=== PATIENT | male | born 1955 | race Native Hawaiian/Other Pacific Islander ===

== ENCOUNTER 2016-08-05 12:32 | Inpatient (IN) | payer OTHER ==
[~2016-08-05] VITALS: Ht 182.9 cm; Wt 98.0 kg
[2016-08-05 14:15] VITALS: PULSE 61
[2016-08-05] MEDS ORDERED: Alum-Mag Hydrox-Simeth 30 mL Suspension PO PRN (14:35)
[2016-08-05] MEDS ORDERED: Ondansetron 2 mg/mL 2 mL Inj IVPUSH PRN (14:35)
[2016-08-05] MEDS ORDERED: Nitroglycerin 2% 1 Gm Ointment TOPICAL PRN (14:35)
[2016-08-05] MEDS ORDERED: Polyethylene Glycol (PEG) 17 Gm Powder PO PRN (14:35)
[2016-08-05] MEDS ORDERED: Senna-Docusate 8.6-50 mg Tablet PO PRN (14:35)
[2016-08-05] MEDS ORDERED: Heparin 25K Unit/500mL 0.45 NS 25,000 UNIT in IV Premix 1 EACH IV SCH (14:50)
[2016-08-05 15:17] VITALS: BP 173/99; PULSE 59; RESP 14; O2SAT 97
[2016-08-05 15:46] LABS: Magnesium 1.9 mg/dL (1.6-2.6)
[2016-08-05] MEDS: Sodium Chloride LOK Flush 10 mL Syringe IVFLUSH SCH (16:30)
[2016-08-05 16:43] VITALS: BP 151/83; PULSE 56; RESP 18; O2SAT 96
--- NOTE | 2016-08-05 16:49 | PCM.CHPCAR ---
Consult Subjective Date of service Aug 05, 2016 Date of admit 07/05/2016 Provider Requesting Consult Requesting Provider: Polly Mcconnell DO Primary Care Physician Primary Care Provider: Paddy Chief Complaint NSTEMI History of Present Illness Mr. Baca is a pleasant 61-year-old male that is clinically followed by Dr. Lora on an annual basis for coronary artery disease. Pt presented to [facility] secondary to a chest pain that reportedly felt like heart burn. His pain did not radiate, patient reports no other associated signs and symptoms, denies diaphoresis, denies chest pain at time of interview. Initial EKG at [facility] showed possible ST abnormalities, repeat EKG showed no ST elevation. Patient was not given nitroglycerin while at [facility] and his symptoms had resolved. Patient states that overnight in hospital his pain had subsided and was scheduled for a stress test at [facility] today however he drank coffee which made the test unavailable. He was transferred to [facility] for further evaluation. The patient has multiple cardiac risk factors and known moderate single coronary artery disease (50% mid LAD/2008) involving left anterior descending coronary artery. He is a 1 PPD smoker x 40 years and had diagnosed DM, HLD and HTN. Stress test done in 08/2015 did not show any excessive induced ischemia though did show some ST segment changes during the resting period. Review of Systems Review of Systems REVIEW OF SYSTEMS Constitutional: Denies Chills, Fever, Sweats, Weakness Eyes: Denies Blurred Vision, Pain, Redness, Vision Changes Neck: Denies Mass, Pain, Swelling Cardiovascular: Denies Chest Pain, Edema, Irregular Heart Rate, Palpitations, Rapid Heart Rate, SOB on Exertion, SOB while laying flat Respiratory: Denies Cough, Cough with bloody sputum, SOB with Exertion, Shortness of Breath, Sputum, Wake up Gasping for Breath, Wheezing Gastrointestinal: Denies Abdominal Pain, Black tarry stools, Bright red blood in stool, Change in Appetite, Constipation, Diarrhea, Heartburn, Nausea, Vomiting Genitourinary: Denies No burning or pain with urination Musculoskeletal: Denies Ankle Pain, Back Pain, Knee Pain, Neck Pain, Shoulder Pain Neurological: Denies Change in LOC, Change in Speech, Confusion, Difficulty Walking, Dizziness, Double Vision, Drooping Mouth, Incoordination, Localized Weakness, Seizures, Somnolence, Tremors, Vertigo. Endorses some numbness and tingling in bilateral lower extremities which he attributes to chronic diabetes and peripheral neuropathy. Hematologic: Denies Abnormal Bleeding, Bruising Lymphatic: Denies Adenopathy Problem List: # NSTEMI # Aortic regurgitation secondary to a bicuspid aortic valve # Hypertension # Hyperlipidemia # Tobacco dependance PMH Past Medical History # CAD # TIA # Diabetes type II # Hypertension # Hyperlipidemia # Aortic regurgitation secondary to bicuspid aortic valve # Tobacco use Past Surgical History # Reports left axillary cyst removal # Bilateral upper extremities by lipoma removal Scheduled Aspirin (Aspirin) 81 Mg Tablet 81 MG PO DAILY (Reported) Losartan Potassium (Losartan Potassium) 25 Mg Tablet 25 MG PO DAILY (Reported) Metoprolol Tartrate (Metoprolol Tartrate) 50 Mg Tablet 50 MG PO BID (Reported) Multivitamin (Once Daily) 1 Each Tablet 1 EACH PO DAILY (Reported) Pioglitazone (Pioglitazone) 30 Mg Tablet 30 MG PO DAILY (Reported) Rosuvastatin Calcium (Crestor) 40 Mg Tablet 40 MG PO DAILY (Reported) Scheduled PRN Clotrimazole (Athlete's Foot) 1 % Cream..g. 1 APPLIC EXT BID PRN PRN dry skin ( Reported) Sildenafil Citrate (Viagra) 100 Mg Tablet 100 MG PO DIRECTED PRN PRN ed ( Reported) Allergies: Coded Allergies: No Known Allergies (Unverified , 08/05/16) Family History Family History #Patient reports mother suffered fatal heart attack in her 70s. #Father's medical history unknown. 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 External ears without defect. Pupils equal, round, and reactive to light and accommodation. Neck: Supple with full range of motion. No jugular venous distension. No bruits. Cardiovascular: Regular rate and rhythm with no murmurs, rubs, or gallops appreciated Pulmonary: Clear to auscultation bilaterally with no crackles, wheezes, or rhonchi. Normal respiratory effort with no use of accessory muscles. Abdomen: Soft, nontender, nondistended. Extremities: No clubbing, cyanosis, edema Skin: Normal temperature, turgor, and texture; no rash, ulcers, or subcutaneous nodules appreciated. No diaphoresis. Neurological: Cranial nerves grossly intact. Normal muscle strength, tone, and bulk. Reflexes, coordination, and sensory function within normal limits. No known gait impairment. Psychiatric: Normal mood and affect. Alert and oriented to person, place, and time. Lab and Diagnostics 12-lead ECG Sinus rhythm, no ST elevation. Additional Diagnostics: Echocardiogram Report Interpretation Summary: 1) Normal left ventricular thickness, size, and sytolic function (EF 60-65%). 2) No obvious focal wall motion abnormalities noted but poor endocardial definition reduces the sensitivity for the detection of such. 3) Normal right ventricular size and function. 4) Calcific possibly bicuspid aortic valve with mild aortic stenosis and mild aortic regurgitation. 5) Compared to the Echo done 11/06/2012, mild aortic stenosis is present on today's study. Assessment & Plan Assessment 61-year-old male past medical history DM, HTN, HLD, CAD transferred from [facility] for NSTEMI evaluation and management. # NSTEMI: patient presented with chest pain to [facility] but has been asymptomatic since hospitalization. Troponin levels show upward trend 0.052, 1.06. CK-MB shows upward trend 1.67, 4.95. ECG showed sinus bradycardia with no significant ST segment changes. ECHO showed no wall motion abnormalities. Given that he has known prior CAD in 2007 and has significant risk factors for progression of CAD including ongoing smoking, diabetes, and age. I would recommend invasive angiography with possible PCI and patient agrees. Plan: - Given loading dose of Plavix and aspirin at [facility]. - Plavix 75 mg daily - ASA 81 mg daily - Heparin Drip - Continue home Metoprolol titrate 50 mg twice a day - Continue home losartan 25 mg daily and uptitrate if needed to control BP better - Continue home atorvastatin 40 mg daily - Morphine when necessary - Nitroglycerin when necessary - Continue to trend troponin - Cardiac cath with possible PCI tomorrow, informed consent obtained # Hypertension,chronic. Blood pressure on admit 173/99, - Losartan as above and uptitrate as needed to reach goal BP < 130/80. - Continue to monitor # Aortic stenosis/Aortic regurgitation with bicuspid aortic valve, on admission. ECHO showed aortic valve calcification with possible bicuspid aortic valve. Patient has mild aortic stenosis and mild aortic regurgitation. Continue to monitor as outpatient and no need for intervention at this time. # Tobacco dependence, chronic. Pt continues to smoke. - Encourage tobacco cessation - Patient given educational handout on benefits of tobacco cessation - Nicotine patch # Hyperlipidemia, chronic - Statin as above Resuscitation Status: CPR: Attempt Resuscitation Attending Statement I saw, examined, and evaluated the patient with Dr. Jose G Felton on 08/05/2016 and agree with the note as above along with my edits. Briefly, this is a high risk patient with diabetes, ongoing smoking and known prior coronary artery disease in the LAD (no stents) admitted with NSTEMI. Plan is for cardiac cath with possible PCI tomorrow. JOSE G FELTON DO Aug 05, 2016 14:44 Shakeel Ramirez MD Aug 05, 2016 16:49
--- NOTE | 2016-08-05 16:59 | DRSVH ---
[facility] [address] [place] [address] Echocardiogram Report Name: CAITIE ZAMORANO JStudy Date: 08/05/2016 Height: 72 in Hospital Exam Location: [facility] Weight: 226 lb Gender: Male BSA: 2.2 m2 : 1955 Age: 61 yrs BP: 173/99 mmHg Reason For Study: CAD Performed By: Lupe Valderrama Referring Physician: TRACI RAMIREZ Interpretation Summary 1) Normal left ventricular thickness, size, and sytolic function (EF 60-65%). 2) No obvious focal wall motion abnormalities noted but poor endocardial definition reduces the sensitivity for the detection of such. 3) Normal right ventricular size and function. 4) Calcific possibly bicuspid aortic valve with mild aortic stenosis and mild aortic regurgitation. 5) Compared to the Echo done 11/06/2012, mild aortic stenosis is present on today's study. Procedure: A two-dimensional transthoracic echocardiogram with color flow and Doppler was performed. The study quality was technically adequate. Comparison is made with the echocardiogram of 09-10-15. The patient was in normal sinus rhythm during the exam. Left Ventricle: The left ventricle is normal in size. There is normal left ventricular wall thickness. The ejection fraction is estimated to be 60-65%. Left ventricular systolic function is normal. There are no obvious focal wall motion abnormalities noted but poor endocardial definition reduces the sensitivity for the detection of such. Assessment of diastolic parameters indicates normal left ventricular diastolic function and normal filling pressures. Right Ventricle: The right ventricle is normal in size and function. Atria: The left atrium is moderately dilated. Right atrial size is normal. The interatrial septum is intact with no evidence for an atrial septal defect. Mitral Valve: The mitral valve is normal in structure and function. Aortic Valve: The aortic valve is moderately calcified. Leaflet mobility is mildly reduced. A bicuspid aortic valve cannot be excluded. There is mild aortic stenosis. There is mild to moderate aortic regurgitation. Tricuspid Valve: The tricuspid valve is normal in structure and function. There is trace tricuspid regurgitation. The right ventricular systolic pressure is estimated at 39 mmHg assuming a right atrial pressure of 8 mm Hg. Pulmonic Valve: The pulmonic valve is not well visualized. There is no pulmonic valvular regurgitation. Great Vessels: The aortic root is normal size. The dimensions of the ascending aorta are normal. The IVC is dilated (diameter is greater than 2.1 cm) yet it collapses greater than 50% with a sniff. This suggests a right atrial pressure of 8 mm Hg. Pericardium/ Pleura There is no pericardial effusion. There is no pleural effusion. MMode/2D Measurements & Calculations LVIDd: 4.8 cm LA dimension: 3.5 cm RA long axis LVOT diam: 2.0 cm LVIDs: 2.7 cm AoV Opening FS: 42.6 % LA A2 area: 25.9 cm RA area IVSd: 1.0 cm LA A4 area: 23.0 cm Ao root diam LVPWd: 0.98 cm LA length (vol) : 18.5 cm RA vol Aortic Jxn: 2.7 cm LA vol: 88.3 ml : 60.2 ml asc Aorta Diam LA vol index RA : 26.8 mm/ Ao Arch Diam (Prox RVDd major Trans): 3.0 cm IVC diam: 2.3 cm : 5.4 cm LV ernandez. diameter/BSA LV sys. diameter/BSA RVD1 (basal) RVD2 (mid): 3.9 cm (cm/m^2): 2.1 (cm/m^2): 1.2 Doppler Measurements & Calculations Ao V2 max MV E max manuel MV E/A: 0.92 TR max manuel : 235.8 cm/sec : 61.6 cm/sec Med Peak E' Manuel : 277.1 cm/sec Ao max PG MV A max manuel TR max PG : 22.2 mmHg : 67.0 cm/sec E/E' med: 8.5 : 30.7 mmHg Ao mean PG MV P1/2t: 67.3 msec Lat Peak E' Manuel PA V2 max : 12.6 mmHg : 80.7 cm/sec LVOT Max Manuel E/E' lat: 6.4 PA mean PG : 90.9 cm/sec E/e' average: 7.4 ELIDIA(I,D): 1.4 cm Pulm A Revs Dur PA Accel Time sev ratio : 0.17 sec MV A dur: 0.14 sec MV dec time MV P1/2t max manuel Ao V2 mean LV V1 max PG : 0.23 sec : 167.5 cm/sec Ao V2 VTI: 55.1 cm LV V1 VTI MVA(P1/2t): 3.3 cm2 : 24.4 cm ELIDIA(V,D): 1.2 cm2 PA V2 mean ELIDIA indexed to BSA Pulm A Revs Dur - MV A : 55.2 cm/sec (cm^2/m^2): 0.63 Dur: -0.01 msec Reading Physician:04:58 PM
[2016-08-05] MEDS ORDERED: LOSA25TA21 PO (17:08)
[2016-08-05] MEDS ORDERED: PIOG30TA26 PO (17:08)
[2016-08-05] MEDS ORDERED: ROSU40TA PO (17:08)
[2016-08-05] MEDS ORDERED: ASPI-973 PO (17:08)
[2016-08-05] MEDS ORDERED: MULT-666 PO (17:08)
[2016-08-05] MEDS ORDERED: CLOT60CR EXT (17:08)
[2016-08-05] MEDS ORDERED: METO50TA3 PO (17:08)
[2016-08-05] MEDS ORDERED: SILD100T PO (17:11)
--- NOTE | 2016-08-05 18:03 | PCM.HPMED ---
Subjective Date of Service Aug 05, 2016 Primary Provider: Admitting Physician: Shakeel Ramirez MD Primary Care Physician: Paddy Attending Physician: Shakeel Ramirez MD Chief Complaint: "chest pain" History of Present Illness: Mr.Raymond Baca is a 61 year old man and current tobacco user with history of hypertension, hyperlipidemia, diabetes mellitus type II, and transient ischemic attack who presents today from [facility] for chest pain that started yesterday evening. He initially thought that it was heartburn but then he felt a sharp, retrosternal discomfort when taking deep breaths, which prompted him to go to the emergency department at [facility]. The pain did not radiate anywhere. He does not have any associated shortness of breath, nausea, vomiting , diaphoresis, palpitations, pre-syncope, or leg edema. He currently does not have any pain. He has been symptom-free since he arrived at the emergency department at [facility]. In the emergency department, patient states that they were not sure based on his tests if he had a heart attack or not so they kept him overnight in the hospital. This morning based on his blood work, they told him that he had a heart attack. His troponin and CKMB levels had increased further over night. He was supposed to have a stress test done today there, but he drank coffee this morning. At that point, they then called Dr. Ramirez to discuss transferring him here. At [facility], the initial electrocardiogram showed possible ST abnormalities. Repeat EKG showed no ST elevation. From review of records, he received a loading dose of heparin, 300 mg of clopidogrel, 325 mg aspirin, 1 dose of rosuvastatin, and 1 dose of metoprolol tartrate 25 mg. He has had episodes similar to this in the past. About 3 years ago, he had a similar episode and started following with Dr. Lora annually. Patient reports that he has had an echocardiogram, a treadmill stress test, a cardiac catheterization, and a cardiac stress test with nuclear imaging. He reports that based on all of those tests he has a known leaky valve. He does not have known significant family history of coronary artery disease. His mother had a heart attack in her 70s. He has known 50% blockage in his mid left anterior descending coronary artery. Review of Systems: Review of Systems: A comprehensive review of systems was conducted with the patient and found to be negative except as above in the History of Present Illness. Allergies Coded Allergies: No Known Allergies (Unverified , 08/05/16) Home Medications Metoprolol Tart Walsh 50 mg 1 tablet by mouth by mouth twice per day Rosuvastatin 40 mg 1 tablet by mouth once daily Pioglitazone 30 mg 1 tablet by mouth once daily Aspirin 81 mg by mouth once daily Losartan potassium 25 mg 1 tablet by mouth once daily Sildenafil 100 mg 1 tablet by mouth as needed Clotrimazole 1% cream apply to effected area PMH Diabetes type II on oral hypoglycemics Essential hypertension Hyperlipidemia Transient ischemic attack Athlete's foot Surgical History Left underarm subcutaneous cyst removal Family History Mother had a myocardial infarction in her 70s Father from natural causes Siblings without any known heart disease 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 External ears without defect. Pupils equal, round, and reactive to light and accommodation. Anicteric sclerae, moist conjunctivae, and no lid lag. Oropharynx free of erythema and cobble stoning with moist mucosa. Neck: Supple with full range of motion. No jugular venous distension. No bruits. No lymphadenopathy or thyromegaly. Cardiovascular: Regular rate and rhythm with no murmurs, rubs, or gallops appreciated Pulmonary: Clear to auscultation bilaterally with no crackles, wheezes, or rhonchi. Normal respiratory effort with no use of accessory muscles. Abdomen: Bowel tones present. Soft, nontender, nondistended. No hepatosplenomegaly or masses appreciated. Extremities: No clubbing, cyanosis, edema, or lymphadenopathy appreciated. Skin: Normal temperature, turgor, and texture; no rash, ulcers, or subcutaneous nodules appreciated. Neurological: Cranial nerves grossly intact. Normal muscle strength, tone, and bulk. Reflexes, coordination, and sensory function within normal limits. No known gait impairment. Psychiatric: Normal mood and affect. Alert and oriented to person, place, and time. Lab and Diagnostics Labs Item Value Date Time Troponin T 0.084 ug/L *H 08/05/16 1505 Magnesium Level 1.9 mg/dL 08/05/16 1505 Total Creatine Kinase 212 U/L 08/05/16 1505 Creatine Kinase MB 6.9 ng/mL 08/05/16 1505 Creatine Kinase MB % 3.3 % 08/05/16 1505 Thyroid Stimulating Hormone (TSH) 0.571 uIU/mL 08/05/16 1505 12-lead ECG Sinus bradycardia. No ischemic changes Cardiac Echo Impressions Echocardiogram Report Interpretation Summary 1) Normal left ventricular thickness, size, and sytolic function (EF 60-65%). 2) No obvious focal wall motion abnormalities noted but poor endocardial definition reduces the sensitivity for the detection of such. 3) Normal right ventricular size and function. 4) Calcific possibly bicuspid aortic valve with mild aortic stenosis and mild aortic regurgitation. 5) Compared to the Echo done 11/06/2012, mild aortic stenosis is present on today's study. Reading Physician:04:58 PM Assessment & Plan 1. Non-ST elevation myocardial infarction. Acute. Present on admission. Active. - Troponin and CK-MB have been elevated and continued to increase - Electrocardiograms do not show any ST segment changes concerning for ischemia - Patient has multiple risk factors including age, high blood pressure, 40-pack- year history of smoking, hyperlipidemia, and diabetes type II - Echocardiogram does not show any focal wall motion abnormalities and a possible bicuspid aortic valve with mild aortic stenosis and mild aortic regurgitation. - Patient was given a heparin bolus, 300 mg of Benadryl, 325 mg of aspirin, 25 mg of metoprolol, and 1 dose of rosuvastatin at [facility] - He was started on a heparin drip at [facility] - Heparin drip resumed here per protocol - Continue home metoprolol - Continue home losartan - Continue home rosuvastatin - Continue aspirin 81 mg and clopidogrel 75 mg once daily - PTT, basic metabolic profile, CBC with differential, and electrocardiogram ordered for tomorrow morning - Morphine and nitroglycerin as needed for pain - Continue to trend troponin and CK-MB - Cardiology consulted and following. Their time and recommendations are appreciated. - Patient is to have a cardiac catheterization with coronary angiogram tomorrow 2. Essential hypertension. Chronic. Present on admission. - Blood pressure initially elevated on patient's arrival to the floor. However , emergency medical services reported that his systolic blood pressure is in the 110s in route. - Upon recheck, it decreased to 151/83 - Continue home metoprolol and losartan as above - Continue to monitor 3. Hyperlipidemia. Chronic. Present on admission - Lipid panel ordered - Continue patient's home dose of rosuvastatin as above 4. Diabetes mellitus type II. Chronic. Present on admission - Hemoglobin A1c pending - Low dose insulin correctional scale 5. Tobacco dependence. Chronic. - Start nicotine patch Acetaminophen for mild pain when necessary. Bowel regimen of senna and MiraLAX scheduled and as needed for constipation. Zofran when necessary for nausea and vomiting. DVT prophylaxis: Patient is on a heparin drip High risk medications: IV heparin ggt IV morphine as needed for chest pain Pain Evaluation: Adequate Pain Control VTE Prophylaxis: Other (Heparin drip for non-ST elevation myocardial infarction ) Resuscitation Status: CPR: Attempt Resuscitation Attending Statement The patient was seen and examined together with Dr. Mcconnell on 08/05/2016 and I agree with the history, exam and plan as outlined in the note above. . Polly Mcconnell DO Aug 05, 2016 14:52 Vinny Crouch MD Aug 06, 2016 18:08
[2016-08-05] MEDS: 0.9% Sodium Chloride 1,000 ML IV SCH (18:19)
[2016-08-05] MEDS ORDERED: Glucose 40% Oral Gel 15 Gm Tube PO PRN (18:35)
--- NOTE | 2016-08-05 19:15 | NUR ---
Admit Pt. transferred to room [address] [facility] from [facility]. Arrival time was ~ 1415. Pt. is A&Ox3, TOMLIN, indep. in room.Upon arrival Pt. denied CP, SOB, N/V/D/C or abdominal pain. Pt. BP was 177 systolically and 99 dystocically, made aware. Rechecked and BP was 151 syst. and 83 dys. Pt. is on a cardiac/heparin protocol, Pt. is in bed at this time resting comfortably watching TV with family.
[2016-08-05 19:31] VITALS: BP 116/69; PULSE 69; RESP 19; O2SAT 94
[2016-08-05 21:25] LABS: Creatine Kinase 198 U/L (21-232)
[2016-08-05 21:32] LABS: TROPONIN T 0.072 ug/L (0.0-0.011)
[2016-08-05] MEDS: Insulin LISPRO 300 Unit/3 mL Inj SUBQ SCH (22:00)
[2016-08-05] MEDS: Heparin 5,000 Unit/mL Inj IVPUSH PRN (22:07)
[2016-08-05 23:45] VITALS: BP 122/70; PULSE 71; RESP 18; O2SAT 96
[2016-08-06] VITALS (17 sets, daily range): BP systolic 107–141; BP diastolic 57–85; PULSE 55–76; RESP 13–20; O2SAT 92–97
[2016-08-06] MEDS: Sodium Chloride LOK Flush 10 mL Syringe IVFLUSH SCH ×3 (00:30→16:30)
[2016-08-06 03:20] LABS: BASOPHILS % (AUTO) 0.6 % (0-3); EOSINOPHILS % (AUTO) 3.5 % (0-5); MONOCYTES % (AUTO) 5.3 % (4-12); Mean Corpuscular Hemoglobin 31.3 pg (27.0-35.0); Mean Corpuscular Volume 91.6 fL (81-100); NEUTROPHILS % (AUTO) 76.8 % (40-74); Platelet Count 238 bil/L (150-400)
--- NOTE | 2016-08-06 05:57 | NUR ---
Heparin gtt Heparin gtt infusing without any noted s/s of bleeding. Currently within therapeutic range @ 1200units/hr. Will adjust per protocol. Addendum: 08/06/16 at 0611 by SARAH MONK RN Student assessment and charting done with this RN and agree with their findings.
[2016-08-06] MEDS: 0.9% Sodium Chloride 1,000 ML IV SCH (06:19)
[2016-08-06] MEDS: Insulin LISPRO 300 Unit/3 mL Inj SUBQ SCH ×4 (08:00→22:00)
--- NOTE | 2016-08-06 08:34 | NUR ---
Social Work Note: Screen Note Data& Assessment: EMR reviewed. Manny Baca is a 61 year old male admitted on 08/05/16 for CP Troponin. Pt has [employer] for primary insurance coverage and [employer] for secondary insurance. Patient does not have a primary care provider. Pt lives in [place] with family. No discharge needs identified at this time. SW to continue to follow if any needs arise. Plan: Anticipated discharge home via POV when medically ready. No discharge needs identified at this time. SW to continue to follow if any needs arise. Candie Martinez, DEBBIE, ACM
[2016-08-06] MEDS: Heparin 5,000 Unit/mL Inj IVPUSH PRN (10:25)
[2016-08-06] MEDS ORDERED: Heparin 1,000 Unit/mL 10 mL Inj ONE ×2 (12:12→12:58)
[2016-08-06] MEDS ORDERED: Nitroglycerin 50,000 mcg/250 mL D5W Premix IV ONE (12:12)
[2016-08-06] MEDS ORDERED: Heparin 1,000 Units/500 mL NS Premix IV ONE (12:12)
[2016-08-06] MEDS ORDERED: Heparin 5,000 Units/500 mL NS Premix IV ONE (12:12)
--- NOTE | 2016-08-06 12:15 | NUR ---
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
[2016-08-06] MEDS ORDERED: fentaNYL-PF 50 mCg/mL 2 mL Inj ONE (12:27)
[2016-08-06] MEDS ORDERED: Atropine 1 mg/10 mL (Code) Syringe ONE (13:05)
[2016-08-06] MEDS ORDERED: 0.9% Sodium Chloride 1,000 ML IV PRN (14:00)
[2016-08-06] MEDS ORDERED: HYDROcodone-APAP 5-325 mg Tablet PO PRN (14:00)
[2016-08-06] MEDS ORDERED: Ondansetron 2 mg/mL 2 mL Inj IVPUSH PRN (14:00)
[2016-08-06] MEDS ORDERED: Atropine 1 mg/10 mL (Code) Syringe IVPUSH PRN (14:00)
[2016-08-06] MEDS ORDERED: 0.9% Sodium Chloride 250 ML IV PRN (14:00)
--- NOTE | 2016-08-06 14:31 | DI95 ---
[address] [address] INTERVENTIONAL CARDIAC CATHETERIZATION PATIENT: CAITIE ZAMORANO : 1955 MR#: [id number] ADMIT: 08/05/2016 JOB ID: [id number] DATE OF PROCEDURE: 08/06/2016 PATIENT PROFILE: The patient is a 61-year-old male who presented with acute coronary syndrome. PROCEDURE: 1. Balloon angioplasty and stenting to the right coronary artery. 2. Balloon angioplasty and stenting to the second obtuse marginal branch of the circumflex artery. VASCULAR CLOSURE DEVICE: None. COMPLICATIONS: None. METHOD: Following diagnostic coronary angiogram performed by Dr. Ramirez via radial approach, heparin 7,000 units and ticagrelor 180 mg were given. A 6-Burmese JR4 guide was initially used but could not engage the right coronary ostium. The guide catheter was changed to a 6-Burmese AR1 guide. A Runthrough wire was placed inside the right coronary artery. A GuideLiner was used for better support. The mid right coronary artery lesion was pre-dilated with a 3.0 x 15 mm balloon. A Resolute Integrity 4.0 x 15 mm stent was placed inside the mid right coronary artery lesion and deployed at 12 atmospheres for 20 seconds. Final angiogram was obtained. The attention was then turned to the obtuse marginal branch lesion. The guide catheter was changed to a 6-Burmese JL4 guide. However this guide could not reach the left coronary ostium. The guide catheter was then changed to a 6-Burmese AL1 guide. A Runthrough wire was placed inside the second obtuse marginal branch. The lesion was pre-dilated with a 2.5 x 15 mm balloon. A Resolute Integrity 2.5 x 18 mm stent was placed inside the lesion and deployed at 11 atmospheres for 20 seconds. Nitroglycerin 150 mcg was given intracoronary. Final angiogram was obtained. Following sheath removal, hemostasis was achieved by manual compression. The patient tolerated the procedure well. He was transferred to the [facility] in good condition. TOTAL CONTRAST USED: 135 mL FLUOROSCOPY TIME: 15.1 minutes. TOTAL RADIATION DOSE: 681 milligray. RESULTS: 1. Successful balloon angioplasty and stenting to the tight culprit mid right coronary artery lesion by deploying one drug-eluting stent (4.0 x 15 mm) to achieve an excellent angiographic result with SAHRA-3 flow distally. 2. Successful balloon angioplasty and stenting to the critical 2nd obtuse marginal branch lesion by deploying one drug-eluting stent (2.5 x 18 mm) to achieve an excellent angiographic result with SAHRA-3 flow distally. MTDD
--- NOTE | 2016-08-06 15:48 | PCM.CVCATH ---
Cardiac Cath Report Date of Service Aug 06, 2016 Primary Indication NSTEMI Procedure coronary angiography Vascular Access Right radial artery using 6 Fr sheath, closure with TR band. Diagnostic Catheters Left main: [place] 4.5, 5 Fr RCA: [place] 4.5, 5 Fr Procedure Details Coronary angiography details: The patient was brought to the cardiac catheterization lab in the fasting state. Patient was laid supine on the cardiac catheterization table and the right forearm was prepped and draped in the usual sterile fashion. One percent Xylocaine was infiltrated over the right radial artery. Vascular access was then achieved under ultrasound guidance. Guide wire was used to advance the catheter through the sheath and up into aortic sinuses. After coronary angiography was completed, guide wire was advanced through the catheter ahead of the tip of the catheter and the guide wire along with the catheter were pulled together out of the sheath. Medications/Fluoro Time Medications/contrast/fluoro administered: see PCI report Findings 1) Coronary angiography: Right dominance a. Left main is angiographically normal b. LAD is normal caliber vessel with 90% stenosis in the mid vessel. The first diagonal artery is medium caliber with 95-99% ostial/proximal stenosis. c. LCx is normal caliber leading to high first obtuse marginal (OM) artery. The LCx and OM1 has mild luminal irregularities. The OM2 has 99% stenosis. d. RCA is normal caliber with 80% stenosis that also appears to have thrombus as evident by abrupt cutoff of the mid-vessel. Mild to moderate luminal irregularities distally. Complications There were no periprocedural complications identified. Summary 3 vessel obstructive disease. Culprit lesion of the NSTEMI appears to be the RCA. Recommendations 1) Refer to interventional cardiology for PCI of the LCx and RCA 2) Discuss with the patient about undergoing CABG of the LAD and the first diagonal artery (DI). If patient not interested in CABG, PCI of the LAD and D1 is a reasonable option. 3) Smoking cessation and aggressive medical management of coronary artery disease. Shakeel Ramirez MD Aug 06, 2016 15:48
--- NOTE | 2016-08-06 17:21 | NUR ---
Patient tx back to room 2000 in stable condition.Right arterial TR band removed and has been off x 35 minutes (since 16:45) with no bleeding or hematoma. Pt has plavix ordered to give later today.Pt did receive brilinta 180 mg post intervention in the lab asst, Dr Ramirez called and he is informed and does want patient to receive plavix dose tonight.This is conveyed to Amber Hughes R.N. patient's nurse on the PCC unit.Pt has no c/o chest pain or right wrist pain.
--- NOTE | 2016-08-06 18:12 | NUR ---
Returned to Unit Patient return to unit form ARON s/p heart cath with stents placed x2. R radial approach was used, upon arrival to room wrist site soft non tender with no s/sx bruising/bleeding. However approx an hour after returning to floor patients wrist began bleeding. Pressure held manually for 10 min until bleeding stopped and new dressing placed, no signs bruising or hematoma noted. Will continue to monitor for bleeding. Addendum: 08/06/16 at 1816 by ROSE MEZA RN Patient denies pain. VSS. Family at bedside.
--- NOTE | 2016-08-06 20:04 | PCM.PNMED ---
Subjective Date of Service Aug 06, 2016 Subjective Mr.Raymond Baca is a 61 year old man and current tobacco user with history of hypertension, hyperlipidemia, diabetes mellitus type II, and transient ischemic attack who presents today from [facility] for chest pain that started Tuesday evening. Today is hospital day 2. Today, he denies any chest pain overnight or this morning. He does not have fever, chills, shortness of breath, nausea, vomiting, or leg edema. He has left shoulder pain for the past 2-3 days that worsened yesterday after getting a pneumonia shot. Exam Vital Signs Vital Sign - Last Date Time Temp Pulse Resp B/P Pulse Ox O2 Delivery O2 Flow Rate FiO2 08/06/16 04:49 62 08/06/16 04:30 Room Air 08/06/16 04:20 36.9 17 137/84 92 Intake and Output 08/05/16 08/05/16 08/06/16 Cumulative From/Thru 15:00 23:00 07:00 08/05/16 15:17 - 08/06/16 06:12 Intake Total 300 ml 1885 ml 2185 ml Output Total 1220 ml 1220 ml Balance 300 ml 665 ml 965 ml Intake Oral 300 ml 618 ml 918 ml IV Total 1267 ml 1267 ml Output Urine Total 1220 ml 1220 ml Exam General: No acute distress, well-developed, well-nourished, appropriately interactive HEENT: Normocephalic, atraumatic. External ears without defect. Pupils equal, round, and reactive to light and accommodation. Anicteric sclerae, moist conjunctivae, and no lid lag. Oropharynx free of erythema and cobble stoning with moist mucosa. Neck: Supple with full range of motion. No jugular venous distension. No bruits. No lymphadenopathy or thyromegaly. Cardiovascular: Regular rate and rhythm with no murmurs, rubs, or gallops appreciated Pulmonary: Clear to auscultation bilaterally with no crackles, wheezes, or rhonchi. Normal respiratory effort with no use of accessory muscles. Abdomen: Bowel tones present. Soft, nontender, nondistended. No hepatosplenomegaly or masses appreciated. Extremities: No clubbing, cyanosis, edema, or lymphadenopathy appreciated. Tenderness to palpation along left deltoid area. Decreased abduction of left shoulder. Skin: Normal temperature, turgor, and texture; no rash, ulcers, or subcutaneous nodules appreciated. Neurological: Cranial nerves grossly intact. Normal muscle strength, tone, and bulk. Reflexes, coordination, and sensory function within normal limits. No known gait impairment. Psychiatric: Normal mood and affect. Alert and oriented to person, place, and time. IVs and Medications Medications Reviewed: Medications were reviewed in detail Lab and Diagnostics Result Diagram: 08/06/1622908/06/16229 12-lead ECG Sinus bradycardia. No ischemic changes Cardiac Echo Impressions Echocardiogram Report Interpretation Summary 1) Normal left ventricular thickness, size, and sytolic function (EF 60-65%). 2) No obvious focal wall motion abnormalities noted but poor endocardial definition reduces the sensitivity for the detection of such. 3) Normal right ventricular size and function. 4) Calcific possibly bicuspid aortic valve with mild aortic stenosis and mild aortic regurgitation. 5) Compared to the Echo done 11/06/2012, mild aortic stenosis is present on today's study. Reading Physician:04:58 PM Assessment & Plan 1. Non-ST elevation myocardial infarction. Acute. Present on admission. Active. - Troponin and CK-MB had been elevated and continued to increase - Electrocardiograms do not show any ST segment changes concerning for ischemia - Patient has multiple risk factors including age, high blood pressure, 40-pack- year history of smoking, hyperlipidemia, and diabetes type II - Echocardiogram does not show any focal wall motion abnormalities and a possible bicuspid aortic valve with mild aortic stenosis and mild aortic regurgitation. - Patient was given a heparin bolus, 300 mg of Benadryl, 325 mg of aspirin, 25 mg of metoprolol, and 1 dose of rosuvastatin at [facility] - He was started on a heparin drip at [facility] - Heparin drip resumed here per protocol - PTT, basic metabolic profile, CBC with differential ordered for tomorrow morning - Morphine and nitroglycerin as needed for pain - Cardiology consulted and following. Their time and recommendations are appreciated. - Patient had a cardiac catheterization with coronary angiogram today that showed 3 vessel disease and underwent percutaneous intervention with two stents. One stent in the right coronary artery and one stent in the second obtuse marginal branch. - Continue home metoprolol - Continue home losartan - Continue home rosuvastatin - Continue aspirin 81 mg and clopidogrel 75 mg once daily - We will make any changes to medication regimen as recommended by cardiology 2. Essential hypertension. Chronic. Present on admission. - Blood pressure initially elevated on patient's arrival to the floor. However , emergency medical services reported that his systolic blood pressure is in the 110s in route. - Upon recheck, it decreased to 151/83. -Blood pressure has been stable - Continue home metoprolol and losartan as above - Continue to monitor 3. Hyperlipidemia. Chronic. Present on admission - Lipid panel ordered - Continue patient's home dose of rosuvastatin as above 4. Diabetes mellitus type II. Chronic. Present on admission - Hemoglobin A1c 6.3% - Low dose insulin correctional scale 5. Tobacco dependence. Chronic. -Continue nicotine patch Acetaminophen for mild pain when necessary. Bowel regimen of senna and MiraLAX scheduled and as needed for constipation. Zofran when necessary for nausea and vomiting. DVT prophylaxis: Patient was on heparin drip. High risk medications: IV morphine as needed for chest pain Disposition: Likely here 1 more day for observation after cardiac catheterization.t Resuscitation Status: CPR: Attempt Resuscitation Attending Statement The patient was seen and examined together with Dr. Mcconnell on 08/06/2016 and I agree with the history, exam and plan as outlined in the note above. . Polly Mcconnell DO Aug 06, 2016 07:34 Vinny Crouch MD Aug 07, 2016 08:24
[2016-08-07] VITALS: BP 142/83; PULSE 60; RESP 16; O2SAT 96
[2016-08-07] MEDS: Sodium Chloride LOK Flush 10 mL Syringe IVFLUSH SCH ×2 (00:01→08:23)
[2016-08-07 03:29] LABS: Mean Corpuscular Hemoglobin 30.6 pg (27.0-35.0); Mean Corpuscular Volume 91.9 fL (81-100)
[2016-08-07 04:26] VITALS: BP 135/79; PULSE 69; RESP 16; O2SAT 97
[2016-08-07 04:55] VITALS: PULSE 55
--- NOTE | 2016-08-07 06:52 | NUR ---
Wrist Site Moderate sanguineous drainage visible on dressing on patient's right wrist at shift change. Patient called at 2014 to say that there was more blood on the dressing. Pressure applied to the site for 10 minutes and no additional drainage noted. Frequent checks overnight with no additional bleeding. Continue to monitor.
[2016-08-07] MEDS: Insulin LISPRO 300 Unit/3 mL Inj SUBQ SCH ×2 (08:00→12:00)
[2016-08-07 08:28] VITALS: BP 154/84; PULSE 70; RESP 18; O2SAT 98
[2016-08-07 08:41] VITALS: PULSE 70
--- NOTE | 2016-08-07 11:09 | PCM.PNCARD ---
Subjective Date of service Aug 07, 2016 Chief Complaint NSTEMI History of Present Illness Mr. Baca is a pleasant 61-year-old male that is clinically followed by Dr. Lora on an annual basis for coronary artery disease. Pt presented to [facility] secondary to a chest pain that reportedly felt like heart burn. His pain did not radiate, patient reports no other associated signs and symptoms, denies diaphoresis, denies chest pain at time of interview. Initial EKG at [facility] showed possible ST abnormalities, repeat EKG showed no ST elevation. Patient was not given nitroglycerin while at [facility] and his symptoms had resolved. Patient states that overnight in hospital his pain had subsided and was scheduled for a stress test at [facility] today however he drank coffee which made the test unavailable. He was transferred to [facility] for further evaluation. The patient has multiple cardiac risk factors and known moderate single coronary artery disease (50% mid LAD/2008) involving left anterior descending coronary artery. He is a 1 PPD smoker x 40 years and had diagnosed DM, HLD and HTN. Stress test done in 08/2015 did not show any excessive induced ischemia though did show some ST segment changes during the resting period. Subjective: Patient states uneventful night, no recurrence of chest pain or discomfort. Denies any shortness of breath or abdominal pain denies headache or visual changes. Patient states he tolerated catheterization procedure well. Overall, patient is eager to be discharged from the hospital. REVIEW OF SYSTEMS Constitutional: Denies Fever, Sweats, Weakness Eyes: Denies Blurred Vision, Pain, Redness, Vision Changes Cardiovascular: Denies Chest Pain, Respiratory: Denies Cough, Cough with bloody sputum, SOB with Exertion, Shortness of Breath, Sputum, Wake up Gasping for Breath, Wheezing Gastrointestinal: Denies Abdominal Painl, Change in Appetite, Constipation, Diarrhea, Heartburn, Nausea, Vomiting Neurological: Denies Change in LOC. Endorses some numbness and tingling in bilateral lower extremities which he attributes to chronic diabetes and peripheral neuropathy. Hematologic: Denies Abnormal Bleeding, Bruising Lymphatic: Denies Adenopathy Problem List: # NSTEMI # Aortic regurgitation secondary to a bicuspid aortic valve # Hypertension # Hyperlipidemia # Tobacco dependance Exam Vital Signs Vital Sign - Last Date Time Temp Pulse Resp B/P Pulse Ox O2 Delivery O2 Flow Rate FiO2 08/07/16 08:41 70 08/07/16 08:28 37.4 18 154/84 98 Room Air Intake and Output 08/06/16 08/06/16 08/07/16 Cumulative From/Thru 15:00 23:00 07:00 08/05/16 15:17 - 08/07/16 06:27 Intake Total 136 ml 1080 ml 3401 ml Output Total 350 ml 1570 ml Balance 136 ml 730 ml 1831 ml Intake Oral 400 ml 1318 ml IV Total 136 ml 680 ml 2083 ml Output Urine Total 350 ml 1570 ml # Bowel Movements 1 1 Additional Information: General: Sitting up in bed in no acute distress, well-developed, well-nourished , appropriately interactive HEENT: Normocephalic, atraumatic. Neck: No jugular venous distension. Cardiovascular: Regular rate and rhythm with no murmurs, rubs, or gallops appreciated Pulmonary: Clear to auscultation bilaterally with no crackles, wheezes, or rhonchi. Normal respiratory effort with no use of accessory muscles. Abdomen: Soft, nontender, nondistended. Extremities: No clubbing, cyanosis, edema Skin: Normal temperature, turgor, and texture; no rash, ulcers, or subcutaneous nodules appreciated. No diaphoresis. Neurological: Cranial nerves grossly intact. No known gait impairment. Psychiatric: Normal mood and affect Lab and Diagnostics Result Diagram: 08/07/1630408/07/16 030 12-lead ECG Telemetry overnight: sinus rhythm with asymptomatic sinus pauses of 3 to 3.1seconds overnight Additional Diagnostics: Cardiac catheterization: - 3 vessel obstructive disease. Culprit lesion of instability appears to be the RCA Coronary angiography: Right dominance a. Left main is angiographically normal b. LAD is normal caliber vessel with 90% stenosis in the mid vessel. The first diagonal artery is medium caliber with 95-99% ostial/proximal stenosis. c. LCx is normal caliber leading to high first obtuse marginal (OM) artery. The LCx and OM1 has mild luminal irregularities. The OM2 has 99% stenosis. d. RCA is normal caliber with 80% stenosis that also appears to have thrombus as evident by abrupt cutoff of the mid-vessel. Mild to moderate luminal irregularities distally. Echocardiogram Report Interpretation Summary: 1) Normal left ventricular thickness, size, and sytolic function (EF 60-65%). 2) No obvious focal wall motion abnormalities noted but poor endocardial definition reduces the sensitivity for the detection of such. 3) Normal right ventricular size and function. 4) Calcific possibly bicuspid aortic valve with mild aortic stenosis and mild aortic regurgitation. 5) Compared to the Echo done 11/06/2012, mild aortic stenosis is present on today's study. Assessment & Plan Assessment 61-year-old male past medical history DM, HTN, HLD, CAD transferred from [facility] for NSTEMI evaluation and management. # NSTEMI: patient presented with chest pain to [place] [facility] but has been asymptomatic since hospitalization. Patient had NSTEMI as noted with troponin elevation on admission. ECG showed never showed significant ST segment changes. ECHO showed no wall motion abnormalities. Catheterization showed 3 vessel obstructive disease identifiable culprit lesion in the RCA. He has PETRA to RCA and LCx 08/06/2016. While the optimal management of the significantly stenotic LAD disease and diagonal artery is CABG, patient doesn't think he can take so much time off from work and may go with stents. He is doing well now but has elevated BP. LDL during the hospitalization was 101. Plan: - s/p clopidogrel 600mg PO load and now clopidogrel 75 mg daily - ASA 81 mg daily - Stop home Metoprolol titrate 50 mg twice a day due to asymptomatic sinus pauses lasting 3 seconds on telemetry overnight - Start Carvedilol 9.375mg BID as it has less HR lowering effect and may potentially be better in diabetics with CAD - Increase losartan from 25 mg daily to 50mg HS for better BP control - Continue home atorvastatin 40 mg daily - Start Ezetimibe 10mg daily to get LDL < goal 70 - Nitroglycerin when necessary - Discussed with the patient about undergoing CABG of the LAD and the first diagonal artery (DI). If patient not interested in CABG, PCI of the LAD and D1 is a reasonable option. Patient will call our office next week and schedule with Dr. Quintana if he chooses LAD stent or schedule with Dr. Lora in 1 month if he chooses CABG - Smoking cessation and aggressive medical management of coronary artery disease. Patient and agree and will work on it # Hypertension,chronic. Blood pressure on admit 173/99, - Losartan as above - Continue to monitor # Aortic stenosis/Aortic regurgitation with bicuspid aortic valve, on admission. ECHO showed aortic valve calcification with possible bicuspid aortic valve. Patient has mild aortic stenosis and mild aortic regurgitation. Continue to monitor as outpatient and no need for intervention at this time. # Tobacco dependence, chronic. Pt continues to smoke. - Encourage tobacco cessation - Patient given educational handout on benefits of tobacco cessation - Nicotine patch # Hyperlipidemia, chronic - Statin as above - Ezetimibe as above # Diabetes: educated about importance of continued good diabetes control Problems: Pain Evaluation: Adequate Pain Control VTE Prophylaxis: Other (Heparin drip for non-ST elevation myocardial infarction ) Resuscitation Status: CPR: Attempt Resuscitation Attending Statement I saw, examined, and evaluated the patient with Dr. Jose G Felton on 08/07/2016 and agree with the note as above along with my edits. JOSE G FELTON DO Aug 07, 2016 10:33 Shakeel Ramirez MD Aug 07, 2016 12:58
[2016-08-07] MEDS ORDERED: CLOP75TA28 PO (11:47)
[2016-08-07] MEDS ORDERED: EZET10TA PO (11:47)
[2016-08-07] MEDS ORDERED: CARV3.122 PO (11:47)
[2016-08-07] MEDS ORDERED: LOSA25TA2 PO (11:47)
--- NOTE | 2016-08-07 12:02 | PCM.DIMED ---
Polly Mcconnell DO 08/07/16 1202: Discharge Instructions Date of Service Aug 07, 2016 Dates of Hospitalization Aug 05, 2016 at 15:11 Discharge Diagnosis Discharge Diagnosis 1. Non-ST elevation myocardial infarction. 2. Essential hypertension. 3. Hyperlipidemia. 4. Diabetes mellitus type II 5. Tobacco dependence. Diet Heart Healthy, Diabetic Activity Limited until seen by PCP Call your provider Fever or Chills, Shortness of breath, Bleeding, Chest pain, Vomitting, Excessive diarrhea, Weakness (unilateral) Patient Instructions Here is your new medication regimen: take clopidogrel 75 mg once daily, aspirin 81 mg once daily, carvedilol 9.375 mg twice per day, rosuvastatin 40 mg once daily, and ezetimibe 10 mg once daily; increase losartan from 25 mg daily to 50 mg daily at bedtime; and stop metoprolol titrate 50 mg twice per day. You can use the book Diabetes Solution by Vic Mckeon as a resource and the website [employer] to help with diabetes control and diet modification. Follow up with your clinical operations manager in 1 week and call him by Tuesday if you decide that you want to pursue another stent or be referred for a coronary artery bypass graft. Follow up with your primary care provider, Dr. Anais Mondragon, in 1 week. I encourage you to stop smoking. Discuss treatment options for smoking cessation with your doctor. Follow-up with PCP in: 1 week Provider: Mj Lora MD Follow-up in: 1 week Vinny Crouch MD 08/08/16 0813: Discharge Instructions Attending's Statement The patient was seen and examined together with Dr. Mcconnell on 08/07/2016 and I agree with the history, exam and plan as outlined in the note above. . Polly Mcconnell DO Aug 07, 2016 12:02 Vinny Crouch MD Aug 08, 2016 08:13
--- NOTE | 2016-08-07 15:02 | NUR ---
Discharge of pt Reviewed discharge instructions with patient and patient's . Patient verbalized understanding. Pt stating not needing a wheelchair and would prefer to walk out of hospital. Pt discharge with prescriptions and instructions. IV and telemetry previously discontinued. Pt left hospital with to home self care.
--- NOTE | 2016-08-09 20:24 | PCM.DC.MED ---
Discharge Summary Date of Service Aug 07, 2016 Dates of Hospitalization Date of Hospital Admission Aug 05, 2016 at 15:11 Date of Discharge: Aug 07, 2016 Providers: Admitting Physician: Shakeel Ramirez MD Primary Care Physician: Paddy Attending Physician: Shakeel Ramirez MD Diagnosis at Time of Discharge Diagnosis at Time of Discharge 1. Non-ST elevation myocardial infarction. 2. Essential hypertension. 3. Hyperlipidemia. 4. Diabetes mellitus type II 5. Tobacco dependence. Procedures ECG 12 Lead Sinus bradycardia. No ischemic changes Cardiac Echo Impression Echocardiogram Report Interpretation Summary 1) Normal left ventricular thickness, size, and sytolic function (EF 60-65%). 2) No obvious focal wall motion abnormalities noted but poor endocardial definition reduces the sensitivity for the detection of such. 3) Normal right ventricular size and function. 4) Calcific possibly bicuspid aortic valve with mild aortic stenosis and mild aortic regurgitation. 5) Compared to the Echo done 11/06/2012, mild aortic stenosis is present on today's study. Reading Physician:04: 58 PM Brief History From the history and physical performed by Dr. Polly Mcconnell on 08/05/2016: Mr.Raymond Baca is a 61 year old man and current tobacco user with history of hypertension, hyperlipidemia, diabetes mellitus type II, and transient ischemic attack who presents today from [facility] for chest pain that started yesterday evening. He initially thought that it was heartburn but then he felt a sharp, retrosternal discomfort when taking deep breaths, which prompted him to go to the emergency department at [facility]. The pain did not radiate anywhere. He does not have any associated shortness of breath, nausea, vomiting , diaphoresis, palpitations, pre-syncope, or leg edema. He currently does not have any pain. He has been symptom-free since he arrived at the emergency department at [facility]. In the emergency department, patient states that they were not sure based on his tests if he had a heart attack or not so they kept him overnight in the hospital. This morning based on his blood work, they told him that he had a heart attack. His troponin and CKMB levels had increased further over night. He was supposed to have a stress test done today there, but he drank coffee this morning. At that point, they then called Dr. Ramirez to discuss transferring him here. At [facility], the initial electrocardiogram showed possible ST abnormalities. Repeat EKG showed no ST elevation. From review of records, he received a loading dose of heparin, 300 mg of clopidogrel, 325 mg aspirin, 1 dose of rosuvastatin, and 1 dose of metoprolol tartrate 25 mg. He has had episodes similar to this in the past. About 3 years ago, he had a similar episode and started following with Dr. Lora annually. Patient reports that he has had an echocardiogram, a treadmill stress test, a cardiac catheterization, and a cardiac stress test with nuclear imaging. He reports that based on all of those tests he has a known leaky valve. He does not have known significant family history of coronary artery disease. His mother had a heart attack in her 70s. He has known 50% blockage in his mid left anterior descending coronary artery. Hospital Course 1. Non-ST elevation myocardial infarction. Acute. Present on admission. Active. - Troponin and CK-MB had been elevated and continued to increase - Electrocardiograms did not show any ST segment changes concerning for ischemia - Patient had multiple risk factors including age, high blood pressure, 40-pack- year history of smoking, hyperlipidemia, and diabetes type II - Echocardiogram did not show any focal wall motion abnormalities and a possible bicuspid aortic valve with mild aortic stenosis and mild aortic regurgitation. - Patient was given a heparin bolus, 300 mg of clopidogrel, 325 mg of aspirin, 25 mg of metoprolol, and 1 dose of rosuvastatin at [facility] - He was started on a heparin drip at [facility] - Heparin drip resumed here per protocol - Morphine and nitroglycerin were given as needed for pain - Cardiology consulted and followed. Their time and recommendations were appreciated. - Patient had a cardiac catheterization with coronary angiogram today that showed 3 vessel disease and underwent percutaneous intervention with two stents with one stent in the right coronary artery and one stent in the second obtuse marginal branch. - Continued home metoprolol, losartan, and rosuvastatin. Metoprolol was switched to carvedilol and losartan was increased to 50 mg per cardiology. - Continued aspirin 81 mg and clopidogrel 75 mg once daily 2. Essential hypertension. Chronic. Present on admission. - Blood pressure initially elevated on patient's arrival to the floor. However , emergency medical services reported that his systolic blood pressure is in the 110s in route. - Upon recheck, it decreased to 151/83. -Blood pressure has been stable - Continued home metoprolol and losartan as above. Metoprolol was switched to carvedilol and losartan was increased to 50 mg per cardiology. 3. Hyperlipidemia. Chronic. Present on admission - Continued patient's home dose of rosuvastatin as above. Ezetimibe was added to regimen based on patient's lipid panel with LDL at 101. 4. Diabetes mellitus type II. Chronic. Present on admission - Hemoglobin A1c 6.3% 5. Tobacco dependence. Chronic. -Nicotine patch given during hospital stay. Exam Vital Signs (Last) Date Time Temp Pulse Resp B/P Pulse Ox O2 Delivery O2 Flow Rate FiO2 08/07/16 08:41 70 08/07/16 08:28 37.4 18 154/84 98 Room Air Exam General: No acute distress, well-developed, well-nourished, appropriately interactive HEENT: Normocephalic, atraumatic. External ears without defect. Pupils equal, round, and reactive to light and accommodation. Anicteric sclerae, moist conjunctivae, and no lid lag. Oropharynx free of erythema and cobble stoning with moist mucosa. Neck: Supple with full range of motion. No jugular venous distension. No bruits. No lymphadenopathy or thyromegaly. Cardiovascular: Regular rate and rhythm with no murmurs, rubs, or gallops appreciated Pulmonary: Clear to auscultation bilaterally with no crackles, wheezes, or rhonchi. Normal respiratory effort with no use of accessory muscles. Abdomen: Bowel tones present. Soft, nontender, nondistended. No hepatosplenomegaly or masses appreciated. Extremities: Right radial access site mildly tender without palpable hematoma. Right radial pulse intact. No clubbing, cyanosis, edema, or lymphadenopathy appreciated. Skin: Normal temperature, turgor, and texture; no rash, ulcers, or subcutaneous nodules appreciated. Neurological: Cranial nerves grossly intact. Normal muscle strength, tone, and bulk. Reflexes, coordination, and sensory function within normal limits. No known gait impairment. Psychiatric: Normal mood and affect. Alert and oriented to person, place, and time. Test 08/05/16 15:05 08/05/16 20:46 08/06/16 02:30 08/06/16 08:48 Hemoglobin A1c 6.3% (4.8-5.6) Magnesium Level 1.9mg/dL (1.6-2.6) Thyroid Stimulating Hormone (TSH) 0.571uIU/mL (0.450-4.500) Total Creatine Kinase 198U/L (21-232) Creatine Kinase MB 5.7ng/mL (0.0-10.4) Creatine Kinase MB % % (0.0-5.0) Neutrophils (%) (Auto) 76.8% (40-74) Lymphocytes (%) (Auto) 13.7% (14-46) Monocytes (%) (Auto) 5.3% (4-12) Eosinophils (%) (Auto) 3.5% (0-5) Basophils (%) (Auto) 0.6% (0-3) Troponin T 0.103ug/L (0.0-0.011) Triglycerides Level 161mg/dL (0-149) Cholesterol Level 173mg/dL (100-199) LDL Cholesterol, Calculated 101.800mg/dL (0-99) VLDL Cholesterol 32.200mg/dL HDL Cholesterol 39mg/dL (>39) Cholesterol/HDL Ratio 4.44 (0.0-4.4) Activated Partial Thromboplast Time 48.6sec (22.8-33.0) Test 08/07/16 03:05 White Blood Count 6.1th/mm3 (3.8-10.1) Red Blood Count 5.06mil/mm3 (4.40-5.80) Hemoglobin 15.5g/dL (13.8-17.2) Hematocrit 46.5% (41.0-50.0) Mean Corpuscular Volume 91.9fL (81-100) Mean Corpuscular Hemoglobin 30.6pg (27.0-35.0) Mean Corpuscular Hemoglobin Concent 33.3% (32.0-37.0) Red Cell Distribution Width 13.6% (12.3-15.4) Platelet Count 224bil/L (150-400) Sodium Level 139mEq/L (134-144) Potassium Level 4.2mEq/L (3.5-5.2) Chloride Level 103mEq/L (97-108) Carbon Dioxide Level 24mmol/L (18-29) Blood Urea Nitrogen 9mg/dL (8-27) Creatinine 0.90mg/dL (0.76-1.27) Estimat Glomerular Filtration Rate 91mL/min (>59) Glucose Level 102mg/dL (60-99) Calcium Level 8.5mg/dL (8.5-10.1) Discharge Medications Discharge Medications Aspirin (Aspirin) 81 Mg Tablet 81 MG PO DAILY (Reported) Carvedilol (Carvedilol) 3.125 Mg Tablet 9.375 MG PO BIDWM Prescribed by: POLLY MCCONNELL DO Clopidogrel (Clopidogrel) 75 Mg Tablet 75 MG PO DAILY Prescribed by: POLLY MCCONNELL DO Ezetimibe (Zetia) 10 Mg Tablet 10 MG PO DAILY Prescribed by: POLLY MCCONNELL DO Losartan Potassium (Cozaar) 25 Mg Tablet 50 MG PO HS Prescribed by: POLLY MCCONNELL DO Multivitamin (Once Daily) 1 Each Tablet 1 EACH PO DAILY (Reported) Pioglitazone (Pioglitazone) 30 Mg Tablet 30 MG PO DAILY (Reported) Rosuvastatin Calcium (Crestor) 40 Mg Tablet 40 MG PO DAILY (Reported) As needed Clotrimazole (Athlete's Foot) 1 % Cream..g. 1 APPLIC EXT BID PRN PRN dry skin ( Reported) Sildenafil Citrate (Viagra) 100 Mg Tablet 100 MG PO DIRECTED PRN PRN ed ( Reported) Followup Plan Discharge Diet: Heart Healthy, Diabetic Discharge Activity: Limited until seen by PCP Patient Instructions Here is your new medication regimen: take clopidogrel 75 mg once daily, aspirin 81 mg once daily, carvedilol 9.375 mg twice per day, rosuvastatin 40 mg once daily, and ezetimibe 10 mg once daily; increase losartan from 25 mg daily to 50 mg daily at bedtime; and stop metoprolol titrate 50 mg twice per day. You can use the book Diabetes Solution by Vic Mckeon as a resource and the website dietweeSPIN[employer] Manager to help with diabetes control and diet modification. Follow up with your channel layer in 1 week and call him by Tuesday if you decide that you want to pursue another stent or be referred for a coronary artery bypass graft. Follow up with your primary care provider, Dr. Anais Mondragon, in 1 week. I encourage you to stop smoking. Discuss treatment options for smoking cessation with your doctor. Follow-up with PCP in: 1 week (Dr. Mondragon) Provider: Mj Lora MD Follow-up in: 1 week Time spent Greater than 30 minutes was spent in preparation of discharge with greater than 50% of that time dedicated to patient counseling and coordination of care. . Attending Statement The patient was seen and examined together with Dr. Mcconnell on 08/07/2016 and I agree with the history, exam and plan as outlined in the note above. . copies to: Mj Lora MD, Marissa L DO Aug 07, 2016 12:03 Vinny Crouch MD Aug 10, 2016 07:46
== END 2016-08-07 13:20 | disposition home or self-care (01) | DRG 247 ==
LOC: PCC 15:11
PROVIDERS: ADMIT Internal Medicine Cardiovascular Disease; ATTEND Internal Medicine
PROC: 027135Z Dilation of Coronary Artery, Two Arteries with Two Drug-eluting Intraluminal Devices, Percutaneous Approach (ICD-10-PCS; principal; 2016-08-06)
PROC: B2111ZZ Fluoroscopy of Multiple Coronary Arteries using Low Osmolar Contrast (ICD-10-PCS; 2016-08-06)
DX: I21.4 Non-ST elevation (NSTEMI) myocardial infarction (principal); Q23.1 Congenital insufficiency of aortic valve; I10 Essential (primary) hypertension; E78.5 Hyperlipidemia, unspecified; E11.9 Type 2 diabetes mellitus without complications; F17.210 Nicotine dependence, cigarettes, uncomplicated; Z79.84 Long term (current) use of oral hypoglycemic drugs; I25.10 Atherosclerotic heart disease of native coronary artery without angina pectoris

== ENCOUNTER 2016-08-18 00:08 | Day surgery (SDC) | payer OTHER ==
--- OUTSIDE RECORDS SUMMARY | 2016-08-11 13:26 | XMS | Continuity of Care Document ---
Author Author [facility] Address Unknown Phone Unavailable Care Team Providers Care Peeled Potato Inspector Name Role Phone Unavailable Unavailable Insurance Providers Payer Name Policy Number Subscriber Name Relationship [facility] [id number] CAITIE ZAMORANO Self PRIME [id number] CAITIE Greene Advance Directives Directive Response Recorded Date/Time Code Status Full code 08/05/16 10:04am Do You Have an Advanced Directive for Health Care? Y 08/05/16 8:09am If No:+ Information provided 08/05/16 3:08am Chief Complaint and Reason for Visit Reason for Visit CHEST PAIN Problems Active Medical Problems Problem Onset Date Recorded Date Status Chest pain Unknown 08/05/16 Active Medications Current Home Medications Medication Dose Units Route Directions Days/Qty Instructions Start Date ASPIRIN (Aspirin EC) 325 MG TABLET. 325 MG ORAL Every day 30 HEPARIN SODIUM,PORCINE (HEPARIN SODIUM) 5,000 UNIT/1 ML VIAL 1,000 UNITS INTRAVEN Every hour 10 HEPARIN PROTOCOL 08/05/16 Metoprolol Tartrate 25 MG TABLET 25 MG ORAL Every 6 hours 30 08/05/16 NITROGLYCERIN (NITROSTAT SL) 0.4 MG TAB.SUBL 0.4 MG SUBLINGUAL As needed as needed for CHEST PAIN 30 08/05/16 PIOGLITAZONE HCL (ACTOS) (Unknown Strength) TABLET Unknown Dose ORAL Every day ROSUVASTATIN CALCIUM (CRESTOR) (Unknown Strength) TABLET Unknown Dose ORAL Every day ROSUVASTATIN CALCIUM (CRESTOR) 10 MG TABLET 10 MG ORAL Every day 30 Past Home Medications Medication Directions Ordered Status Aspirin 81 Mg Tab.chew Tab.chew, 81 Mg Oral Every day Unknown Discontinued Losartan Potassium 25 Mg Tablet Tablet, 25 Mg Oral Every day Unknown Discontinued Metoprolol Tartrate (Unknown Strength) Tablet Tablet, Unknown Dose Oral Twice daily Unknown Discontinued Social History Problem Response Recorded Date Street drug use? N 08/05/16 Alcohol Use? Y 08/05/16 Support sources:+ Family, local 08/05/16 Able to participate in own care? N 08/05/16 Have help at home after discharge? Y 08/05/16 Prior to this admission, the patient lived:+ WITH FAMILY 08/05/16 Query Response Start Date Stop Date Smoking status:+ Current every day smoker Hospital Discharge Instructions : acute [place] Plan of Care Discharge Date 08/05/16 Disposition [facility] (02) Instructions/Education Provided [facility] ED Information Forms Provided Nursing info - Transfer Prescriptions See Medications Section Care Plan and Goals See Discharge Instructions section Functional Status Query Response Date Recorded Mobility:+ Stand-by assist August 05, 2016 8:29am Allergies, Adverse Reactions, Alerts No known allergies. Immunizations Name Date Given Type Influenza? (Seasonal)+ No Historical Lst Tetanus:* UNK Historical Influenza, seasonal, injectable, preservative free 08/05/16 Administered Pneumococcal conjugate PCV 13 08/05/16 Administered Vital Signs Vital Reading Collection Date/Time Result Blood Pressure 08/05/16 12:05pm 138/82 Patient Temperature 08/05/16 12:05pm 98.6 Respiratory Rate 08/05/16 12:05pm 20 Pulse Rate 08/05/16 12:05pm 61 Bedside Pulse Oximetry 08/05/16 9:49am 97 Height 08/05/16 3:08am 6 ft 0 in 182.88 cm Weight 08/05/16 3:08am 224 lb 101.5 kg Body Mass Index 08/05/16 3:08am 30.3 kg/m2 Results Laboratory Results Test Name Result Units Flags Reference Collection Date/Time Result Date/ Time Comments Hemoglobin 15.4 G/DL 13.5-17.5 08/05/16 11:25am 08/05/16 11:55am Hematocrit 46.5 % 41-53 08/05/16 11:25am 08/05/16 11:55am Platelet Count 233 X10^3/uL 150-400 08/05/16 11:25am 08/05/16 11:55am Prothrombin Time 12.4 SECONDS 10.0-12.7 08/05/16 11:25am 08/05/16 12: 07pm International Ratio (Anticoag Ther) 1.1 0.9-1.3 08/05/16 11:25am 03/13 12:07pm INR THERAPUTIC RANGES: PREVENTION AND TREATMENT OF THROMBOEMBOLISM ASSOCIATED WITH: AF, PE, VT, POST-RI, BIPROSTHETIC HEART VALVES 2.0-3.0 MECHANICAL HEART VALVES 2.5-3.5 Activated Partial Thromboplast Time 150 #*H 26.4-36.2 08/05/16 11:25am 08/05/16 12:13pm RESULT CALLED PERSON OR PLACE CONTACTED: SARA BRIANNA YI WAS THE RESULT READ-BACK? YES DATE: 08/05/16 TIME: 1213 Adjunctive to Coronary Thrombosis Heparin (0.1 - 0.3 UI/mL)=46.5 - 63.2 seconds Heparin (0.3 - 0.7 UI/mL)=63.2 - 102.2 seconds. Troponin I 1.060 ng/mL *H 0.01-0.034 08/05/16 8:45am 08/05/16 9:52am RESULT CALLED PERSON OR PLACE CONTACTED: [email or web address] WAS THE RESULT READ-BACK? YES DATE: 08/05/16 TIME: 951 Reference Ranges: Upper Reference Limit 0.034 ng/mL AMI Diagnostic Cutoff 0.120 ng/mL Total Creatine Kinase 213 U/L H 55-170 08/05/16 8:45am 08/05/16 9:52am Creatine Kinase MB 4.95 ng/mL # H 0-2.37 08/05/16 8:45am 08/05/16 9:52am Creatine Kinase MB Relative Index 2.3 % 08/05/16 8:45am 08/05/16 9: 52am IF TOTAL CK IS GREATER THAN 250 U/L & CK-MB IS GREATER THAN 5 NG/ML, NORMAL CK-MB RELATIVE % INDEX=1.5-5.0 Alkaline Phosphatase 61 U/L 38-126 08/05/16 8:45am 08/05/16 9:52am Total Bilirubin 0.7 mg/dL 0.2-1.3 08/05/16 8:45am 08/05/16 9:52am Blood Urea Nitrogen 15.0 mg/dL 9-20 08/05/16 8:45am 08/05/16 9:52am Creatinine 1.00 mg/dL 0.66-1.25 08/05/16 8:45am 08/05/16 9:52am Estimated GFR (MDRD) >60.0 mL/min >60 08/05/16 8:45am 08/05/16 9:52am ESTIMATED GFR: TO ESTIMATE THE GLOMERULAR FILTRATION RATE FOR - AMERICANS, MULTIPLY THE RESULTS PROVIDED BY 1.21. ESTIMATED GFR (EGFR) VALUES <60 ml/min/1.73m2 ARE INDICATIVE OF CHRONIC KIDNEY DISEASE. BUN/Creatinine Ratio 15.0 5.8-27.8 08/05/16 8:45am 08/05/16 9:52am Calcium Level 8.9 mg/dL 8.4-10.2 08/05/16 8:45am 08/05/16 9:52am Glucose Level 116 mg/dL H 80-115 08/05/16 8:45am 08/05/16 9:52am Total Protein 7.4 g/dL 6.3-8.2 08/05/16 8:45am 08/05/16 9:52am Albumin 4.0 g/dL 3.5-5.0 08/05/16 8:45am 08/05/16 9:52am Globulin 3.4 g/dL 1.7-4.1 08/05/16 8:45am 08/05/16 9:52am Albumin/Globulin Ratio 1.2 1-2.8 08/05/16 8:45am 08/05/16 9:52am Aspartate Amino Transf (AST/SGOT) 30 IU/L 17-59 08/05/16 8:45am 9:52am Alanine Aminotransferase (ALT/SGPT) 27 IU/L 21-72 08/05/16 8:45am 08/05 9:52am Sodium Level 143 mmol/L 137-145 08/05/16 8:45am 08/05/16 9:52am Potassium Level 4.2 mmol/L 3.5-5.1 08/05/16 8:45am 08/05/16 9:52am Chloride Level 107.0 mmol/L 98-107 08/05/16 8:45am 08/05/16 9:52am Carbon Dioxide Level 26.0 mmol/L 22-30 08/05/16 8:45am 08/05/16 9:52am White Blood Count 8.1 X10^3/uL 4.5-11 08/05/16 8:45am 08/05/16 9:09am Red Blood Count 5.28 X10^6/uL 4.5-5.9 08/05/16 8:45am 08/05/16 9:09am Mean Corpuscular Volume 92.8 FL 80-100 08/05/16 8:45am 08/05/16 9:09am Mean Corpuscular Hemoglobin 30.6 PG 26-34 08/05/16 8:45am 08/05/16 9: 09am Mean Corpuscular Hemoglobin Concent 33.0 % 31-37 08/05/16 8:45am 9:09am Red Cell Distribution Width 13.7 % 11.6-14.8 08/05/16 8:45am 08/05/16 9 :09am Neutrophils % 49.1 % L 50-75 08/05/16 8:45am 08/05/16 9:09am Absolute Neutrophil 4000 /uL [id number] 08/05/16 8:45am 08/05/16 9:09am Lymphocytes % 37.7 % 25-40 08/05/16 8:45am 08/05/16 9:09am Monocytes % 6.7 % 3-14 08/05/16 8:45am 08/05/16 9:09am Eosinophils % 5.6 % H 2-4 08/05/16 8:45am 08/05/16 9:09am Basophils % 0.9 % 0-2 08/05/16 8:45am 08/05/16 9:09am Amylase Level 90 U/L 30-110 08/05/16 0:45am 08/05/16 1:06am Lipase 176 U/L 23-300 08/05/16 0:45am 08/05/16 1:06am Procedures No Known History of Procedures. Encounters Encounter Location Arrival/Admit Date Discharge/Depart Date Attending Provider Discharged Inpatient [facility] 08/05/16 0:27am 08/05/16 1:10pm Jefry Porter MD Encounter Diagnosis Onset Date Chest pain
[~2016-08-18] VITALS: Ht 182.9 cm; Wt 103.3 kg
[2016-08-18] VITALS (14 sets, daily range): BP systolic 89–138; BP diastolic 56–78; PULSE 60–75; RESP 14–20; O2SAT 94–97
[~2016-08-18 00:08] MED LIST: ASPI-973 PO; CARV3.122 PO; CLOP75TA28 PO; CLOT60CR EXT; EZET10TA PO; LOSA25TA2 PO; MULT-666 PO; PIOG30TA26 PO; ROSU40TA PO; SILD100T PO
[2016-08-18 11:53] LABS: BASOPHILS % (AUTO) 0.4 % (0-3); EOSINOPHILS % (AUTO) 5.3 % (0-5); MONOCYTES % (AUTO) 8.2 % (4-12); Mean Corpuscular Hemoglobin 31.3 pg (27.0-35.0); Mean Corpuscular Volume 92.4 fL (81-100); NEUTROPHILS % (AUTO) 54.2 % (40-74); Platelet Count 254 bil/L (150-400)
[2016-08-18] MEDS ORDERED: 0.9% Sodium Chloride 1,000 ML ONE (12:47)
[2016-08-18] MEDS ORDERED: Heparin 5,000 Units/500 mL NS Premix IV ONE (12:47)
[2016-08-18] MEDS ORDERED: Heparin 1,000 Unit/mL 10 mL Inj ONE ×4 (12:47→15:20)
[2016-08-18] MEDS ORDERED: Heparin 1,000 Units/500 mL NS Premix IV ONE (12:47)
[2016-08-18] MEDS ORDERED: Nitroglycerin 50,000 mcg/250 mL D5W Premix IV ONE (12:47)
--- NOTE | 2016-08-18 13:00 | NUR ---
Admitted through [facility] today for a planned PCI by Dr Quintana. Pt and family understand plan of care. NSR at time of admit and chest pain free.
[2016-08-18] MEDS ORDERED: Dextrose 5% 0.45% NaCl 1,000 ML IV ONE (14:27)
--- NOTE | 2016-08-18 14:33 | NUR ---
Patient's blood sugar checked and is now 86 , pt asymptomatic.Dr luna informed and order received to start D5 1/2 NS @ 100cc/hr.
[2016-08-18] MEDS ORDERED: fentaNYL-PF 50 mCg/mL 2 mL Inj ONE (14:48)
[2016-08-18] MEDS ORDERED: 0.9% Sodium Chloride 500 ML ONE (15:35)
[2016-08-18] MEDS ORDERED: Protamine Sulfate 10 mg/mL 5 mL Inj ONE (16:15)
--- NOTE | 2016-08-18 17:03 | NUR ---
Returned to [facility] post Mid-[facility] - with exoseal closure device. NSR - with a slightly lower SBP upon return. Note - 775mcg of IV nitro during heart cath. Dr Singletary informed of lower BP - 200cc/IV fluid bolus. Family has discussed case with Dr. Quintana. Dr Singletary is substation operator helper generation tonight.
--- NOTE | 2016-08-18 17:07 | DI95 ---
[place] [address] INTERVENTIONAL CARDIAC CATHETERIZATION PATIENT: CAITIE ZAMORANO : 1955 MR#: [id number] ADMIT: 08/18/2016 JOB ID: [id number] CORRECTED REPORT DATE OF PROCEDURE: 08/18/2016 PATIENT PROFILE: The patient is a 61-year-old male with history of diabetes. He presented with acute coronary syndrome on August 05, 2016. He underwent stent placement to the right coronary artery and second obtuse marginal branch on August 06, 2016. The patient returns for elective intervention procedure to the left anterior descending artery lesion. PROCEDURE: 1. Balloon angioplasty and stenting to the mid left anterior descending. 2. Balloon angioplasty to the first diagonal branch. VASCULAR CLOSURE DEVICE: ExoSeal. COMPLICATIONS: None. METHOD: Vascular access was obtained from the right groin under 1% lidocaine local anesthesia using a 6-Persian sheath. A 6-Persian CLS 3.5 guide was initially used but could not engage the left coronary ostium. The guide catheter was then changed to a 6-Persian CLS 4 guide. Heparin 100 units/kg were given. A Runthrough wire was placed inside the left anterior descending artery. The lesion was pre-dilated with a 2.5 and a 3.0 mm balloons. A Resolute Integrity 2.75 x 26 mm stent was placed inside the lesion and deployed at 14 atmospheres for 30 seconds. Nitroglycerin 100 mcg was given intracoronary. A 3.0 mm balloon was used for post stent deployment dilation. It was inflated upto 14 atmospheres for 39 seconds. The attention was then turned to the first diagonal branch. The Runthrough wire was redirected into the first diagonal branch. This 1st diagonal branch lesion was then dilated with a 2.0 x 20 mm balloon. It was inflated up to 14 atmospheres for 1 minute. Final angiogram was obtained. Right femoral angiogram was performed before sheath removal. Hemostasis was achieved by using an ExoSeal device. The patient tolerated the procedure well. He was transferred to [facility] in good condition. TOTAL CONTRAST USED: 220 mL. TOTAL FLUOROSCOPY TIME: 90 minutes. TOTAL RADIATION DOSE: 168 mGy. RESULTS: 1. Selective balloon angioplasty and stenting to the tight mid left anterior descending artery lesion by deploying one drug-eluting stent to achieve an excellent angiographic result with SAHRA-3 flow distally. 2. Successful balloon angioplasty to the severe 1st diagonal branch stenosis to achieve a good angiographic result with SAHRA-3 flow distally. Corrected by RHODA 10/21/16 at 7:54am DOSLissy LAYNE
[2016-08-18] MEDS ORDERED: Sodium Chloride LOK Flush 10 mL Syringe IVFLUSH PRN (18:00)
[2016-08-18] MEDS ORDERED: 0.9% Sodium Chloride 400 ML (4 HRS) IV ONE (18:00)
[2016-08-18] MEDS ORDERED: Atropine 1 mg/10 mL (Code) Syringe IVPUSH PRN (18:00)
[2016-08-18] MEDS ORDERED: Ondansetron 2 mg/mL 2 mL Inj IVPUSH PRN (18:00)
[2016-08-18] MEDS ORDERED: 0.9% Sodium Chloride 250 ML BOLUS IV PRN (18:00)
--- NOTE | 2016-08-18 19:13 | NUR ---
[facility] Care of patient assumed at 1715. Report from previous RN. Right groin remains without bleeding or hematoma. Pedal pulses present. Patient denies pain. Family at bedside. patient sleeping but wakes to voice. Transferred to room 2002 by bed at 1845. Receiving RN updated.
--- NOTE | 2016-08-18 19:15 | NUR ---
[facility] Care of patient assumed at 1715. Report from previous RN. Patient continues without bleeding or hematoma at right groin . Pedal pulses present. Denies pain. Sleeping but wakes to voice. Family at bedside. Transferred to room 2002 by bed at 1845. Update to receiving RN
[2016-08-19 03:04] LABS: Mean Corpuscular Volume 93.2 fL (81-100)
[2016-08-19 03:11] VITALS: BP 135/82; PULSE 65; RESP 18; O2SAT 95
--- NOTE | 2016-08-19 04:36 | NUR ---
Transfer of care/groin site Pt arrived to [facility] @ 1845 and was on bed rest until 2099. Pt groin site at this time soft, non-tender and no hematoma noted with distal pulses palpable. Groin site check throughout the night and remained soft non-tender with no hematoma noted. Pt able to ambulate to bathroom independently. VSS and Tele SR 60's 70's.
[2016-08-19 05:37] VITALS: PULSE 67
[2016-08-19 07:48] VITALS: PULSE 58
[2016-08-19 08:54] VITALS: BP 134/77; PULSE 71; RESP 16; O2SAT 98
[2016-08-19] MEDS ORDERED: CARV3.122 PO (10:44)
--- NOTE | 2016-08-19 10:54 | DIS ---
[address] [address] DISCHARGE SUMMARY PATIENT: CAITIE ZAMORANO : 1954 MR#: [id number] ADMIT: 08/18/2016 JOB ID: [id number] DIS: DISCHARGE SUMMARY: DATE OF DISCHARGE: July. PHYSICIAN: Cardiology - Marty Singletary MD ADMITTING DIAGNOSES: 1. Coronary artery disease (CAD). 2. Planned percutaneous coronary intervention (PCI) - Mid left anterior descending; and ostial small Diagonal-2. 3. Status post recent percutaneous coronary intervention - obtuse marginal; and right coronary artery. 4. Diabetes mellitus--on medical therapy; and hypertension; and hyperlipidemia. DISCHARGE DIAGNOSES: 1. Percutaneous coronary intervention of mid left anterior descending-- Resolute Integrity PETRA (drug-eluting stent) - 3.0 x 26 mm. 2. PTCA--Diagonal-2-- Balloon angioplasty of ostium. DISCHARGE SUMMARY: I was glad to see this 61-year-old man on Cardiology rounds this morning, , August 19, 2016, for anticipated discharge after he presented yesterday for a planned intervention of Mid LAD, and ostium of a small diagonal to complete revascularization of three vessels following his prior procedure on August 06 when OM, and RCA were treated. Overnight, he has done well. No chest discomfort. No other symptoms or problems. He was hydrated well; and made good urine output. He has been ambulatory, feels well and ready to go home. There has been no difficulty reported with his ExoSeal closure at the right femoral access site. EXAMINATION: Vital signs stable with blood pressure 134/76, heart rate 71 and regular. Examination: I noted the examination is intact, including HEENT, neurologic without overt focal neurologic defect; neck with intact carotid pulses and no bruit bilaterally. Heart and lungs unremarkable. EXTREMITIES: The right lower extremity is fully intact, including at the right femoral access site with a good pulse, no hematoma, or pulsatile mass or bruit; and only minimal ecchymosis. Distal perfusion and dorsalis pedis pulse intact. ELECTROCARDIOGRAPHY: The ECG postprocedure yesterday was intact. LABORATORY: Laboratory this morning includes: CBC stable. Chemistries include glucose 100, potassium 4.3, and creatinine stable at 1.01. ASSESSMENT AND RECOMMENDATION: 1. Satisfactory course, post percutaneous coronary intervention yesterday; and stable for planned discharge today. 2. Follow-up with his primary physician early; with Dr. Lora in [facility] one week. 3. I discussed at some length with him (no family present) regarding the procedure, findings, and ongoing management considerations including: We discussed close follow-up and to call early if any symptoms; and to go to emergency room by EMS if chest discomfort. We discussed his medicines including the critical importance of mandatory dual antiplatelet therapy and not to stop Plavix for any reason without immediate Cardiology consultation. He has it on his cell phone. His other medicines include Actos, ezetimibe, aspirin, Plavix 40 mg, high intensity rosuvastatin; and carvedilol for his hypertension. None of these are new medicines. We discussed activity prescription for moderate, progressive, common sense, symptom limited activity and to reassess return to work with Dr. 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 We discussed and answered his questions. XI
--- NOTE | 2016-08-19 11:51 | NUR ---
Discharge Pt discharged to home with family at ~1130. Pt given discharge educational materials on angioplasty/stent. Pt's IV access D/C'd and intact X2. Pt instructed to f/u with cardiology, appointment made with Dr. Ramirez 09/21/16 at 1415. Pt verbalized understanding of all discharge instructions. All belongings accompanied Pt at time of discharge.
== END 2016-08-19 11:35 | disposition home or self-care (01) ==
LOC: SOUO 00:08 → PCC 18:43 → SOUO 08-19 11:35
PROVIDERS: ATTEND Internal Medicine Interventional Cardiology
DX: I25.10 Atherosclerotic heart disease of native coronary artery without angina pectoris (principal); E11.9 Type 2 diabetes mellitus without complications; F17.210 Nicotine dependence, cigarettes, uncomplicated; E78.5 Hyperlipidemia, unspecified; I10 Essential (primary) hypertension; Z79.82 Long term (current) use of aspirin; Z95.5 Presence of coronary angioplasty implant and graft
CPT/HCPCS: 36415; 80048; 85025; 85027; 92921; 93005; 99152; 99153; C1725; C1760; C1769; C1874; C1887; C9600; J1644; J2250; J3010; J7030; J7040; J7042; Q9967